=== PATIENT | female | born 1970 | race Caucasian/White ===

== ENCOUNTER 2018-12-28 14:32 | Emergency (ER) | payer MEDICAID ==
[~2018-12-28] VITALS: Ht 154.9 cm; Wt 2.3 kg
[2018-12-28 15:23] VITALS: BP 148/62
[2018-12-28] MEDS ORDERED: ONDANSETRON ODT 4 MG TAB PO ONE (15:45)
[2018-12-28] MEDS ORDERED: KETOROLAC TROMETH 60MG/2ML VIAL IM ONE (15:45)
[2018-12-28] MEDS ORDERED: diphenhdrAMINE HCL 50 MG/1 ML VL IM ONE (15:45)
== END 2018-12-28 16:19 | disposition home or self-care (01) ==
LOC: ER 14:32
DX: G43.909 Migraine, unspecified, not intractable, without status migrainosus (principal); Z88.8 Allergy status to other drugs, medicaments and biological substances
CPT/HCPCS: 96372; 99283; J1200; J1885; Q0162